=== PATIENT | male | born 1995 | race Asian ===

== ENCOUNTER → 2018-08-06 | Emergency (ER) | payer BC, OTHER ==
[~2018-08-06] VITALS: Ht 177.8 cm; Wt 79.4 kg
[~2018-08-06] MED LIST: LIDOCAINE 1% INJ 50 ML MDV IJ ONE; LIDOCAINE HCL/PF 1% 30 ML VIAL TP ONE
--- NOTE | 2018-08-06 11:39 | NUR ---
PLUMBING [employer]ARE[employer] HELPER AT BEDSIDE.
--- NOTE | 2018-08-06 12:25 | NUR ---
LAC REPAIR DONE BY DR. HOUSTON, PROVIDED WOUND CARE, PENDING DISCHARGE.
[2018-08-06 12:27] VITALS: BP 116/80
== END | disposition home or self-care (01) ==
LOC: ER 10:47
DX: S61.212A Laceration without foreign body of right middle finger without damage to nail, initial encounter (principal); S51.011A Laceration without foreign body of right elbow, initial encounter; F17.200 Nicotine dependence, unspecified, uncomplicated; W22.8XXA Striking against or struck by other objects, initial encounter; Y93.89 Activity, other specified; Y92.89 Other specified places as the place of occurrence of the external cause; Y99.8 Other external cause status
CPT/HCPCS: 73130-TC; A4606; A4649; A6402; A6403; J3490; Z7610

== ENCOUNTER 2018-12-28 19:45 | Emergency (ER) | payer OTHER ==
[~2018-12-28] VITALS: Ht 177.8 cm; Wt 79.4 kg
[2018-12-28 20:13] VITALS: BP 107/64
--- NOTE | 2018-12-28 20:26 | NUR ---
Isai dangelo in [facility] - 12/28/18 at 2027 by SERGIO REPORT GIVEN TO ALEX BELLAMY FOR 216 GP
== END 2018-12-28 20:13 | disposition home or self-care (01) ==
LOC: ER 19:56
DX: J02.9 Acute pharyngitis, unspecified (principal); R05 Cough; R50.9 Fever, unspecified; F17.200 Nicotine dependence, unspecified, uncomplicated
CPT/HCPCS: Z7502

== ENCOUNTER 2019-01-29 19:31 | Emergency (ER) | payer OTHER ==
[~2019-01-29] VITALS: Ht 177.8 cm; Wt 81.6 kg
[2019-01-29 19:48] VITALS: BP 116/72
[2019-01-29] MEDS ORDERED: IBUPROFEN 600 MG TABLET PO ONE ×2 (20:30→20:39)
[2019-01-29] MEDS ORDERED: AMOX/CLAVULANATE 875 MG TABLET PO ONE (20:30)
[2019-01-29] MEDS ORDERED: AMOX/CLAVULANATE 875 MG TABLET ONE (20:39)
== END 2019-01-29 20:53 | disposition home or self-care (01) ==
LOC: ER 19:34
DX: J03.90 Acute tonsillitis, unspecified (principal); F17.200 Nicotine dependence, unspecified, uncomplicated
CPT/HCPCS: 86403-TC; 87070-TC